=== PATIENT | female | born 1945 | race African-American/Black ===

== ENCOUNTER 2020-09-12 11:09 | Outpatient (CLI) | payer MEDICARE, OTHER ==
--- NOTE | 2020-09-12 13:22 | XRay Report ---
CHEST 2 VIEWS INDICATION / CLINICAL INFORMATION: COUGH/SHORTNESS OF BREATH. COMPARISON: None available. FINDINGS: SUPPORT DEVICES: Left central venous line HEART / MEDIASTINUM: No significant abnormality. LUNGS / PLEURA: Diffuse interstitial disease No pneumothorax. ADDITIONAL FINDINGS: No significant additional findings. 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 Signer Name: Abimael Gutierres MD FACR Signed: 09/12/2020 1:18 PM Workstation Name: [place] [email or web address]
== END 2020-09-12 11:10 | disposition home or self-care (01) ==
LOC: SPVIMAG 11:09
PROVIDERS: ATTEND Internal Medicine Hematology & Oncology
DX: C85.90 Non-Hodgkin lymphoma, unspecified, unspecified site (principal); C18.9 Malignant neoplasm of colon, unspecified; C82.33 Follicular lymphoma grade IIIa, intra-abdominal lymph nodes; D05.11 Intraductal carcinoma in situ of right breast; D50.8 Other iron deficiency anemias; D69.3 Immune thrombocytopenic purpura; Z85.038 Personal history of other malignant neoplasm of large intestine
CPT/HCPCS: 71046